=== PATIENT | male | born 1950 | race African-American/Black ===

== ENCOUNTER 2018-10-12 14:57 | Inpatient (IN) | payer MEDICAID, MEDICARE, OTHER ==
[~2018-10-12] VITALS: Ht 175.3 cm; Wt 98.2 kg
[2018-10-12] MEDS ORDERED: NKM (15:06)
--- NOTE | 2018-10-12 15:10 | NUR ---
ED Nurse Note: Pt walke din due to right hip/groin pain x 2 days. Denies injury or trauma to that part. No difficulty urinating. BP also 206/111 upon triage and is non compliant with his meds. Pt is AAO x,4 ambulates with steady gait. No respiratory distress.
--- NOTE | 2018-10-12 15:14 | Emergency Room Report ---
History of Present Illness General Chief Complaint: General Complaint Source: Patient Present Illness HPI Patient is a 68-year-old male presented after increased right inguinal pain. Patient reports of increased pain to his right groin area which began several days ago. Patient had been taking Tylenol without any improvement. He had prior history of hypertension but does not take any medications currently. Patient reports havi having worsening pain with ambulation. He denies any vomiting. Allergies: Coded Allergies: No Known Allergies (Unverified , 10/12/18) Patient History Reviewed Nursing Documentation: PMH: Agreed; PSxH: Agreed Nursing Documentation-PMH Past Medical History: No History, Except For Hx Hypertension: Yes - HTN, CVA 2009 Hx Diabetes: Yes Review of Systems All Other Systems: negative except mentioned in HPI Physical Exam Vital Signs Date Time Temp Pulse Resp B/P (MAP) Pulse Ox O2 Delivery O2 Flow Rate FiO2 10/12/18 15:00 97.9 82 18 206/111 94 Room Air Sp02 EP Interpretation: reviewed, normal General Appearance: normal inspection, well appearing, no apparent distress, alert, GCS 15, obese Head: atraumatic ENT: normal ENT inspection, hearing grossly normal, normal voice Neck: normal inspection, full range of motion, supple, no bony tend Respiratory: normal inspection, lungs clear, normal breath sounds, no respiratory distress, no retraction, no wheezing Cardiovascular #1: regular rate, rhythm, no edema Gastrointestinal: normal inspection, normal bowel sounds, soft, no guarding, no hernia, tenderness - right lower abdomen Genitourinary: no CVA tenderness Musculoskeletal: normal inspection, back normal, normal range of motion Neurologic: normal inspection, alert, oriented x3, responsive, sampling theory teacher III-XII nml as tested, speech normal Psychiatric: normal inspection, judgement/insight normal, mood/affect normal Skin: normal inspection, normal color, no rash Medical Decision Making Diagnostic Impression: Primary Impression: Uncontrolled hypertension Additional Impressions: Renal mass Horseshoe kidney ER Course Patient presented for abdominal pain. Differential diagnoses included ischemic bowel, appendicitis, perforated viscus, abdominal aortic aneurysm, inferior myocardial infarction, viral gastroenteritis among others. Because of complexity of patient's case laboratory testing and imaging studies were ordered.laboratory testing was unremarkable CT of the abdomen pelvis read by radiology showed horseshoe kidney with cystic multilobar structure posterior to the horseshoe kidney isthmus exerting mild mass-effect on the IVC measuring 3 x 3 x 2. There is no evidence of appendicitis.Patient was given hydralazine as well as metoprolol with some improvement in his blood pressure. Patient was discussed with at [facility] who agreed to accept the patient transfer. Patient was authorized for observation at [facility]. Dr. Ruy Campos was contacted for inpatient observation. Labs Test 10/12/18 15:30 White Blood Count 6.4 K/UL (4.8-10.8) Red Blood Count 4.58 M/UL (4.70-6.10) Hemoglobin 15.1 G/DL (14.2-18.0) Hematocrit 41.7 % (42.0-52.0) Mean Corpuscular Volume 91 FL (80-99) Mean Corpuscular Hemoglobin 33.0 PG (27.0-31.0) Mean Corpuscular Hemoglobin Concent 36.2 G/DL (32.0-36.0) Red Cell Distribution Width 10.2 % (11.6-14.8) Platelet Count 190 K/UL (150-450) Mean Platelet Volume 7.6 FL (6.5-10.1) Neutrophils (%) (Auto) 64.7 % (45.0-75.0) Lymphocytes (%) (Auto) 26.1 % (20.0-45.0) Monocytes (%) (Auto) 7.0 % (1.0-10.0) Eosinophils (%) (Auto) 1.0 % (0.0-3.0) Basophils (%) (Auto) 1.3 % (0.0-2.0) Urine Color Yellow Urine Appearance Clear Urine pH 6 (4.5-8.0) Urine Specific [place] 1.015 (1.005-1.035) Urine Protein 2+ (NEGATIVE) Urine Glucose (UA) 1+ (NEGATIVE) Urine Ketones Negative (NEGATIVE) Urine Blood Negative (NEGATIVE) Urine Nitrite Negative (NEGATIVE) Urine Bilirubin Negative (NEGATIVE) Urine Urobilinogen 1 MG/DL (0.0-1.0) Urine Leukocyte Esterase Negative (NEGATIVE) Urine RBC 0-2 /HPF (0 - 0) Urine WBC 0-2 /HPF (0 - 0) Urine Squamous Epithelial Cells None /LPF (NONE/OCC) Urine Bacteria Occasional /HPF (NONE) Sodium Level 140 MMOL/L (136-145) Potassium Level 3.6 MMOL/L (3.5-5.1) Chloride Level 102 MMOL/L (98-107) Carbon Dioxide Level 29 MMOL/L (21-32) Anion Gap 9 mmol/L (5-15) Blood Urea Nitrogen 15 mg/dL (7-18) Creatinine 1.3 MG/DL (0.55-1.30) Estimat Glomerular Filtration Rate > 60 mL/min (>60) Glucose Level 118 MG/DL (74-106) Calcium Level 9.9 MG/DL (8.5-10.1) Total Bilirubin 0.7 MG/DL (0.2-1.0) Aspartate Amino Transf (AST/SGOT) 21 U/L (15-37) Alanine Aminotransferase (ALT/SGPT) 38 U/L (12-78) Alkaline Phosphatase 70 U/L (46-116) Troponin I 0.012 ng/mL (0.000-0.056) Total Protein 8.2 G/DL (6.4-8.2) Albumin 4.1 G/DL (3.4-5.0) Globulin 4.1 g/dL Albumin/Globulin Ratio 1.0 (1.0-2.7) Lipase 85 U/L (73-393) Last Vital Signs Date Time Temp Pulse Resp B/P (MAP) Pulse Ox O2 Delivery O2 Flow Rate FiO2 10/12/18 15:00 97.9 82 18 206/111 94 Room Air Status: improved Disposition: PLACE IN OBSERVATION Condition: Stable Bryno Hobbs MD Oct 12, 2018 15:13
--- NOTE | 2018-10-12 15:23 | NUR ---
ED Nurse Note: Dr Hobbs is at the bed side.
[2018-10-12] MEDS ORDERED: Isovue-300 100ml vial INJ PRN (15:30)
[2018-10-12] MEDS ORDERED: Morphine Sulfate 4mg/ml Inj (IV USE ONLY) IVP ONE (15:30)
[2018-10-12] MEDS: Metoprolol 5mg/5ml Inj IVP SCH ×3 (15:43→16:07)
[2018-10-12 16:09] VITALS: BP 188/97
[2018-10-12 16:13] LABS: BASOPHILS % (AUTO) 1.3 % (0.0-2.0); HEMATOCRIT 41.7 % (42.0-52.0); HEMOGLOBIN 15.1 G/DL (14.2-18.0); LYMPHOCYTES % (AUTO) 26.1 % (20.0-45.0); MEAN CORPUSCULAR VOLUME 91 FL (80-99); NEUTROPHILS % (AUTO) 64.7 % (45.0-75.0); PLATELET COUNT 190 K/UL (150-450); RED BLOOD COUNT 4.58 M/UL (4.70-6.10); RED CELL DISTRIBUTION WIDTH 10.2 % (11.6-14.8); WHITE BLOOD COUNT 6.4 K/UL (4.8-10.8)
[2018-10-12 16:17] LABS: APPEARANCE,URINE CLEAR; BILIRUBIN, URINE NEGATIVE (NEGATIVE); GLUCOSE, URINE (UA) 1+ (NEGATIVE); KETONES,URINE NEGATIVE (NEGATIVE); LEUKOCYTE ESTERASE ,URINE NEGATIVE (NEGATIVE); NITRITE,URINE NEGATIVE (NEGATIVE); PH,URINE 6 (4.5-8.0); PROTEIN,URINE 2+ (NEGATIVE); UROBILINOGEN,URINE 1 MG/DL (0.0-1.0)
[2018-10-12 16:18] LABS: COLOR,URINE YELLOW
[2018-10-12 16:32] LABS: ANION GAP 9 mmol/L (5-15); BLOOD UREA NITROGEN 15 mg/dL (7-18); CALCIUM 9.9 MG/DL (8.5-10.1); CARBON DIOXIDE 29 MMOL/L (21-32); CHLORIDE 102 MMOL/L (98-107); CREATININE 1.3 MG/DL (0.55-1.30); POTASSIUM 3.6 MMOL/L (3.5-5.1); SODIUM 140 MMOL/L (136-145)
[2018-10-12 16:36] LABS: ALANINE AMINOTRANSFERASE 38 U/L (12-78); ALBUMIN 4.1 G/DL (3.4-5.0); ALKALINE PHOSPHATASE 70 U/L (46-116); ASPARTATE AMINO TRANSFERASE 21 U/L (15-37); BILIRUBIN,TOTAL 0.7 MG/DL (0.2-1.0)
--- NOTE | 2018-10-12 17:10 | NUR ---
ED Nurse Note: Pt taken to CT via daphney.
--- NOTE | 2018-10-12 17:25 | NUR ---
ED Nurse Note: Pt back from CT via dapnhey.
[2018-10-12 18:10] VITALS: BP 185/94
--- NOTE | 2018-10-12 18:34 | Diagnostic Imaging Report ---
EXAM: CT Abdomen and Pelvis With Intravenous Contrast CLINICAL HISTORY: ABD PAIN TECHNIQUE: Axial computed tomography images of the abdomen and pelvis with intravenous contrast. CTDI is 19.40 mGy and DLP is 1161 mGy-cm. One or more of the following dose reduction techniques were used: automated exposure control, adjustment of the mA and/or kV according to patient size, use of iterative reconstruction technique. Coronal and sagittal reformatted images were created and reviewed. COMPARISON: No relevant prior studies available. FINDINGS: Lung bases: Unremarkable. No mass. No consolidation. ABDOMEN: Liver: Unremarkable. No mass. Gallbladder and bile ducts: Unremarkable. No calcified stones. No ductal dilation. Pancreas: Unremarkable. No mass. No ductal dilation. Spleen: Unremarkable. No splenomegaly. Adrenals: Unremarkable. No mass. Kidneys and ureters: Horseshoe kidney with likely benign bilateral renal cysts and too small to characterize hypodensities likely representing benign cysts, measuring up to 4.3 cm on the right and 2.8 cm on the left. Cystic multilobular structure posterior to the horseshoe kidney isthmus and exerting mild mass effect upon the adjacent IVC measures 3.5 x 3.2 x 1.9 cm and is thought likely to be incidental and benign but is of uncertain exact etiology. This could represent a renal cyst. This could also represent a metastatic of the nonlymphatic, or other vascular malformation. Cystic metastatic disease is thought unlikely. Recommend MRI kidneys without and with intravenous contrast to further characterize. Stomach and bowel: Unremarkable. No obstruction. No mucosal thickening. PELVIS: Appendix: No findings to suggest acute appendicitis. Bladder: Unremarkable. No mass. Reproductive: Unremarkable as visualized. ABDOMEN and PELVIS: Intraperitoneal space: Unremarkable. No free air. No significant fluid collection. Bones/joints: No acute fracture. No dislocation. Soft tissues: Fat-containing periumbilical hernia with 1.7 cm mouth. Vasculature: Unremarkable. No abdominal aortic aneurysm. Lymph nodes: Unremarkable. No enlarged lymph nodes. Other findings: Minimal ASVD. IMPRESSION: 1. No acute abnormality. 2. Horseshoe kidney with likely benign renal cysts. 3. Cystic multilobular structure posterior to the horseshoe kidney isthmus and exerting mild mass effect upon the adjacent IVC measures 3.5 x 3.2 x 1.9 cm and is thought likely to be incidental and benign but is of uncertain exact etiology. This could represent a renal cyst. This could also represent a metastatic of the nonlymphatic, or other vascular malformation. Cystic metastatic disease is thought unlikely. Recommend MRI kidneys without and with intravenous contrast to further characterize.
[2018-10-12 18:39] VITALS: BP 211/92
--- NOTE | 2018-10-12 18:40 | NUR ---
ED Nurse Note: 211/[address] Hobbs notified.
--- NOTE | 2018-10-12 18:45 | NUR ---
ED Nurse Note: Dr Hobbs at the bed side recommending pt to stay for hospitalization. Pt verbalized understanding and aware of admission.
--- NOTE | 2018-10-12 19:09 | NUR ---
HAND-OFF: Report given to Padmini ORTA.
[2018-10-12] MEDS ORDERED: TYLENOL EXTRA500 MG ORAL (19:12)
[2018-10-12 19:41] VITALS: BP 196/111
--- NOTE | 2018-10-12 19:42 | NUR ---
ER Nurse Note: Pt a&ox4, VSS, no signs of distress. Denies pain. Pt ambulatory, steady gait. Pt recieved 0.5mg of hydralazine per ERMD verbal orders. Pt current BP 179/89. Pt cleared to eat; provided pt with tuna sandwich. Pt lights off, calm and comfortable. Bed in lowest position, will continue to montior.
--- NOTE | 2018-10-12 22:30 | NUR ---
TRANSFER TO FLOOR: Patient transferred to SDU-Tele overflow as ordered, per Andres. Report given to YOU Saldaña
[2018-10-12 22:33] VITALS: BP 165/75
--- NOTE | 2018-10-12 22:50 | NUR ---
NURSE NOTES: Patient arrived to SDU from ER via gurney accompanied by an RN and technical writing lead/mgr. Report received from YOU Monaco at bedside. Patient is alert, verbally responsive, able to make needs known. Denies any pain at this time. Respiration is even, no SOB or S/Sx of acute respiratory distress noted. Sp02 is 99% in room air. Routine admission care provided. oriented patient to call light, and items in room. IV site is to right AC 20 and is intact. Bed is in lowest position. Call light is within easy reach while in bed. Will continue to monitor.
--- NOTE | 2018-10-12 23:06 | NUR ---
NURSE NOTES: Paged Dr Frias for admitting order. Currently awaiting for call back at this time.
[2018-10-12 23:08] VITALS: BP 137/93
[2018-10-13] VITALS (7 sets, daily range): BP systolic 140–165; BP diastolic 71–96
--- NOTE | 2018-10-13 06:15 | NUR ---
NURSE NOTES: Report received from Piper ORTA. Pt transferred from [facility] via mayra bed. Pt in stable condition upon transfer. residential monitor remained in place. Belongings list checked with transferring RN and pt at bedside. Pt has phone and castillo at bedside, declining placing in safe and requesting to keep at bedside. Pt is awake, alert, and oriented x4. Pt is on room air and breathing is even and unlabored. No acute distress noted. IV site is R AC #20g and is asymptomatic, patent, and intact. Bed placed in lowest position with brake engaged and side rails up x2. Call light and side table placed within reach. Pt is c/o scrotal pain and is requesting tylenol - will administer PRN per orders. Will continue to monitor.
--- NOTE | 2018-10-13 06:15 | NUR ---
HAND-OFF: Report given to YOU Vera. Patient was transferred to room 218-2 via bed by 2 RN. Pt is currently stable.
--- NOTE | 2018-10-13 07:42 | NUR ---
NURSE NOTES: Received report from YOU Ross. Patient in bed resting, no active s/s cardiac, respiratory distress noticed at this time. Patient on room air, SR with HR 80. IV site on right AC 20G, asymptomatic, patent, intact. Patient c/o groin pain, endorsed one dose of Tylenol given for mild pain. Bed in lowest position, side rails upx3, call light within reach. Will continue to monitor.
--- NOTE | 2018-10-13 07:43 | NUR ---
HAND-OFF: Report given to Inocente Choi RN. Pt is sitting up at bedside in stable condition. No acute distress noted. Endorsed plan of care.
--- NOTE | 2018-10-13 11:27 | NUR ---
NURSE NOTES: Dr. Campos made aware patient c/o inguinal pain. Per Dr. Campos transfer patient to med-surgi unit, lisinopril 10 mg BID PO, ibuprofen 800 mg PO q4h prn for pain. Order noted, entered, carried out. Will continue to monitor.
--- NOTE | 2018-10-13 13:46 | NUR ---
NURSE NOTES: One dose of clonidine given at 1118 for BP 188/103, BP rechecked now 143/89 HR 78.
--- NOTE | 2018-10-13 14:00 | NUR ---
NURSE NOTES: CN made aware Dr. Campos ordered transfer patient to [facility], Awaiting for room.
[2018-10-13] MEDS ORDERED: Lisinopril 10mg tab ORAL SCH (18:00)
--- NOTE | 2018-10-13 19:20 | NUR ---
NURSE NOTES: Pt report received from Silvia ORTA. Pt is alert and oriented times 4. Pt is on room air, no distress noted. Pt appears to be resting comfortably, no distress noted. Pt has a R AC 20G, Iv is able to flush, no abnormalities noted. Will continue plan of care.
--- NOTE | 2018-10-13 19:23 | NUR ---
HAND-OFF: Report given to YOU Lopez.
--- NOTE | 2018-10-13 21:43 | NUR ---
NURSE NOTES: Received report from YOU Lopez. Addendum: 10/13/18 at 2144 by CARINE DOUGLAS RN via phone
--- NOTE | 2018-10-13 21:54 | NUR ---
HAND-OFF: Report given to Abbie ORTA from Med Surg.
[2018-10-13] MEDS ORDERED: Metoprolol 5mg/5ml Inj IVP SCH (22:00)
--- NOTE | 2018-10-13 22:15 | Progress Note ---
DATE: 10/11/2018 SUBJECTIVE: This is a 68-year-old male who came to the emergency room for uncontrolled high blood pressure and weakness. The patient was also complaining of pain on the right groin area for few days and has been progressively worsening. He has no fever and no chills. PAST MEDICAL HISTORY: None. ALLERGIES: None. FAMILY HISTORY: Noncontributory. SOCIAL HISTORY: He lives by himself. He denies any accidentally. PHYSICAL EXAMINATION: GENERAL: This is an elderly male. VITAL SIGNS: His blood pressure was high and still high, currently blood pressure 165/90, pulse 74, and respirations 18. No fever. SKIN: Good skin turgor. HEENT: NAD. CHEST: Bilaterally clear. CARDIOVASCULAR: Regular rhythm. No gallop. No murmur. ABDOMEN: Soft. Positive bowel sounds. EXTREMITIES: Right hip pain. GENITOURINARY: Refused. RECTAL: Deferred. LABORATORY EXAMINATION: Unremarkable. ASSESSMENT: 1. Uncontrolled hypertension. 2. Right groin pain, no hernia. PLAN: We will admit on tele bed. Continue Norvasc. Add lisinopril 10 mg twice a day. Continue clonidine p.r.n. q.4 h. p.r.n. pain. Consider Urology consult. Ruy Campos M.D. DR: SAMANTHA JOB#: [id number] CC: VERNON
--- NOTE | 2018-10-13 22:15 | NUR ---
NURSE NOTES: Patient arrived 3 east. AAOx4. No signs of acute distress. IV site patent. Motrin given for pain 6/10 right lower abdomen/groin region. Oriented to room. Side rails up x2. Bed low, call light within reach.
[2018-10-14] VITALS: BP 170/95
[2018-10-14 04:00] VITALS: BP 161/94
--- NOTE | 2018-10-14 07:34 | NUR ---
HAND-OFF: Report given to YOU Pascual. Patient stable.
--- NOTE | 2018-10-14 07:45 | NUR ---
NURSE NOTES: Received report from YOU Leiva. Rounding done with outgoing nurse. Patient asleep. Bed in lowest position, call light within reach. Will continue to monitor.
--- NOTE | 2018-10-14 07:53 | Urology Progress Note ---
Assessment/Plan Assessment/Plan: RLQ pain, etiology? urinary frequency renal cyst proteinuria testicular atrophy horseshoe kidney, mass posterior to isthmus monitor clinically consider abd/pelvic MRI consider gen surg eval add flomax Subjective Allergies: Coded Allergies: No Known Allergies (Unverified , 10/12/18) Subjective no new changes Objective Last 24 Hour Vital Signs Date Time Temp Pulse Resp B/P (MAP) Pulse Ox O2 Delivery O2 Flow Rate FiO2 10/14/18 04:00 98.2 60 20 161/94 (116) 96 10/14/18 00:41 170/95 10/14/18 00:00 98.3 70 20 170/95 (120) 99 10/13/18 21:00 Room Air 10/13/18 20:00 98.4 71 20 163/90 (114) 99 10/13/18 17:28 148/84 10/13/18 16:00 97.9 64 20 148/84 (105) 99 10/13/18 16:00 61 10/13/18 13:41 78 20 143/89 (107) 96 10/13/18 12:00 76 10/13/18 12:00 98.4 74 23 160/90 (113) 96 10/13/18 11:18 188/103 10/13/18 09:00 Room Air 10/13/18 08:30 77 165/96 10/13/18 08:00 98.1 77 20 165/96 (119) 97 10/13/18 08:00 66 Intake and Output 10/13/18 10/14/18 18:59 06:59 Intake Total 220 ml Balance 220 ml Intake Oral 220 ml # Voids 3 Current Medications Medications (Trade) Dose Ordered Sig/Keith Route PRN Reason Start Time Stop Time Status Last Admin Dose Admin Acetaminophen (Tylenol) 650 mg Q6H PRN ORAL Mild Pain/Temp > 100.5 10/13/18 22:00 11/12/18 21:59 Amlodipine Besylate (Norvasc) 10 mg DAILY ORAL 10/14/18 09:00 11/12/18 08:59 Clonidine HCl (Catapres Tab) 0.1 mg Q6H PRN ORAL SBP>160 OR DBP>90mmHg 10/13/18 22:00 11/12/18 21:59 10/14/18 00:41 Ibuprofen (Motrin) 800 mg Q4H PRN ORAL for pain 10/13/18 22:00 11/12/18 21:59 10/14/18 04:26 Lisinopril (Zestril) 10 mg BID ORAL 10/14/18 09:00 11/12/18 17:59 Height (Feet): 5 Height (Inches): 9.00 Weight (Pounds): 200 Objective exam stable Celso Subramanian MD Oct 14, 2018 07:53
[2018-10-14 08:00] VITALS: BP 173/98
[2018-10-14] MEDS: Lisinopril 10mg tab ORAL SCH ×2 (09:25→17:56)
--- NOTE | 2018-10-14 10:30 | Consultation ---
DATE OF CONSULTATION: 10/13/2018 CONSULTING PHYSICIAN: Celso Subramanian M.D. REFERRING PHYSICIAN: Ruy Campos M.D. REASON FOR CONSULTATION: For evaluation of groin pain. HISTORY OF PRESENT ILLNESS: This is a 68-year-old gentleman, who was admitted to the hospital because of uncontrolled high blood pressure and weakness. He is complaining of vague right groin pain and lower abdominal pain. This has been intermittent for number of weeks. He is able to urinate okay. He has some frequency. PAST MEDICAL HISTORY: As above. Otherwise negative. PAST SURGICAL HISTORY: Unknown. MEDICATIONS: Current medications here in the hospital, the patient is on Norvasc, Zestril, Tylenol, Catapres, and Motrin. ALLERGIES: No known drug allergies. SOCIAL HISTORY: The patient is currently a nonsmoker. REVIEW OF SYSTEMS: As above. FAMILY HISTORY: Noncontributory. PHYSICAL EXAMINATION: GENERAL: Elderly male, in no acute distress. VITAL SIGNS: Temperature is afebrile. Blood pressure is 160/90. NECK: Supple. ABDOMEN: Soft. I do not feel any masses. He has mild tenderness to deep palpation in the right lower quadrant. GENITOURINARY: Testes are descended and are slightly small. LABORATORY DATA: Laboratory studies showed BUN of 15, creatinine 1.3. White count of 6.4. UA showed 2+ protein, otherwise essentially negative. DIAGNOSTIC IMAGING STUDIES: The patient had a CT scan of the abdomen and pelvis showed evidence of horseshoe kidney with a benign renal cyst. There was also mention of a multilobular structure posterior to the horseshoe kidney isthmus exerting a mass effect on the IVC. The exact nature of this is unknown. IMPRESSION: 1. Vague lower abdominal and groin pain on the right side. 2. Urinary frequency. 3. Renal cyst. 4. Proteinuria. 5. Mild testicular atrophy. PLAN AND DISCUSSION: The patient does have severe groin and right lower quadrant pain. The exact etiology is unknown. There was not any abnormalities in the right lower quadrant noted on CT scan. He did have this structure near the horseshoe kidney and he may benefit from MRI for further evaluation. This can potentially be done as an outpatient. I will also consider adding Flomax. I would also recommend neurosurgical evaluation. Thank you for this consultation. Celso Subramanian M.D. DR: SHOSHANA JOB#: [id number] CC:
[2018-10-14 12:00] VITALS: BP 161/89
--- NOTE | 2018-10-14 13:44 | NUR ---
*-* INSURANCE *-* ALL AVAILABLE CLINICALS AND REVIEWS HAVE BEEN FAXED TO: [facility] NCM: BARNEY P- [phone] F- [phone]....REVIEW/CLINICAL
--- NOTE | 2018-10-14 15:18 | NUR ---
CASE MANAGEMENT:REVIEW 57 YR OLD MALE FROM HOME TO ER SI: UNCONTROLLED HTN. RENAL MASS 97.9 82 18 206/111 94% ON RA GLUCOSE+118 IS: IV HYDRALAZINE X2 IV METOPROLOL IV MORPHINE CT ABD/PELVIS : TO TELEMETRY
[2018-10-14 16:00] VITALS: BP 157/84
--- NOTE | 2018-10-14 19:25 | NUR ---
NURSE NOTES: Dr. Campos ordered Lisinopril 20mg BID. Noted and carried out.
--- NOTE | 2018-10-14 19:33 | NUR ---
HAND-OFF: Report given to YOU Leiva.
[2018-10-14 20:00] VITALS: BP 179/103
[2018-10-14] MEDS: Tamsulosin 0.4mg cap ORAL SCH (20:14)
--- NOTE | 2018-10-14 20:23 | NUR ---
NURSE NOTES: Received report from YOU Pascual. Patient is aaox4. no pain noted. BP 179/103. Clonidine given. Neuro checks wnl, talkative. Side rails upx2. Safety precautions in place. Bed low, call light within reach.
--- NOTE | 2018-10-14 22:36 | Physician Query ---
Clarification is required for compliance, coding accuracy, and to reflect severity of illness for this patient Dear Dr. Campos Date: 10/14/[address] and [address] X in appropriate box Patient is admitted with uncontrolled hypertension. BP: 206/111 Rx: IV Hydralazine Can you please clarify further severity of Hypertension? [ ] Hypertensive urgency [ ] Hypertensive emergency [ ] Essential Hypertension [ ] Other: [ ] Clinically undetermined Present on Admission: [ ] Yes [ ] No [ ] Clinically Undetermined Physician signature Date Please also document in your Progress Notes and/or Discharge Summary and indicate if the condition was present on admission.
[2018-10-15] VITALS (7 sets, daily range): BP systolic 152–185; BP diastolic 89–105
--- NOTE | 2018-10-15 01:00 | Progress Note ---
DATE: 10/14/2018 SUBJECTIVE: This is an elderly male. Currently, in bed. OBJECTIVE: VITAL SIGNS: Blood pressure is better, 157/84 and pulse 60. No fever. CHEST: Bilaterally clear. CARDIOVASCULAR: Regular rhythm. ABDOMEN: Soft. EXTREMITIES: CCE. ASSESSMENT: 1. Hypertension. 2. Urinary tract infection. 3. Dehydration. PLAN: Continue current treatment. Continue antibiotic. Continue bronchodilator treatment, Tylenol, and Flomax. Ruy Campos M.D. DR: SAMANTHA JOB#: [id number] CC:
--- NOTE | 2018-10-15 07:46 | Urology Progress Note ---
Assessment/Plan Assessment/Plan: RLQ pain, etiology? urinary frequency renal cyst proteinuria testicular atrophy horseshoe kidney, mass posterior to isthmus monitor clinically order abd/pelvic MRI consider gen surg eval flomax added Subjective Allergies: Coded Allergies: No Known Allergies (Unverified , 10/12/18) Subjective no new changes Objective Last 24 Hour Vital Signs Date Time Temp Pulse Resp B/P (MAP) Pulse Ox O2 Delivery O2 Flow Rate FiO2 10/15/18 04:00 99.2 69 18 154/99 (117) 99 10/15/18 00:00 98.6 59 18 152/92 (112) 99 10/14/18 21:00 Room Air 10/14/18 20:15 179/103 10/14/18 20:00 98.6 83 18 179/103 (128) 96 10/14/18 17:56 157/84 10/14/18 16:00 98.4 60 18 157/84 (108) 99 10/14/18 12:00 98.7 57 20 161/89 (113) 99 10/14/18 09:26 173/98 10/14/18 09:25 173/98 10/14/18 09:25 69 173/98 10/14/18 09:00 Room Air 10/14/18 08:00 97.7 69 20 173/98 (123) 98 Intake and Output 10/14/18 10/15/18 18:59 06:59 Intake Total 800 ml 360 ml Balance 800 ml 360 ml Intake Oral 800 ml 360 ml # Voids 3 4 Current Medications Medications (Trade) Dose Ordered Sig/Keith Route PRN Reason Start Time Stop Time Status Last Admin Dose Admin Acetaminophen (Tylenol) 650 mg Q6H PRN ORAL Mild Pain/Temp > 100.5 10/13/18 22:00 11/12/18 21:59 Amlodipine Besylate (Norvasc) 10 mg DAILY ORAL 10/14/18 09:00 11/12/18 08:59 10/14/18 09:25 Clonidine HCl (Catapres Tab) 0.1 mg Q6H PRN ORAL SBP>160 OR DBP>90mmHg 10/13/18 22:00 11/12/18 21:59 10/14/18 20:15 Ibuprofen (Motrin) 800 mg Q4H PRN ORAL for pain 10/13/18 22:00 11/12/18 21:59 10/15/18 04:32 Lisinopril (Zestril) 20 mg BID ORAL 10/15/18 09:00 11/12/18 17:59 Tamsulosin HCl (Flomax) 0.4 mg BEDTIME ORAL 10/14/18 21:00 11/13/18 20:59 10/14/18 20:14 Height (Feet): 5 Height (Inches): 9.00 Weight (Pounds): 200 Objective exam stable Celso Subramanian MD Oct 15, 2018 07:46
[2018-10-15] MEDS ORDERED: Gadavist 7.5mMol/7.5ml vial IV PRN (08:00)
[2018-10-15] MEDS ORDERED: Gadavist 7.5mMol/7.5ml vial IV ONE (08:00)
--- NOTE | 2018-10-15 08:05 | NUR ---
HAND-OFF: Report given to YOU Gomez. Patient stable.
--- NOTE | 2018-10-15 08:21 | NUR ---
NURSE NOTES: During shift change patient alert awake with out no distress, bed on low position locked, call light with in reach, will continue to monitor.
[2018-10-15] MEDS: Lisinopril 10mg tab ORAL SCH ×2 (09:26→17:11)
[2018-10-15] MEDS: HydrALAZINE 25mg tab ORAL SCH ×2 (12:30→17:11)
--- NOTE | 2018-10-15 12:35 | NUR ---
NURSE NOTES: Patient SBP 182 MD notified medication order received medication administered patient left for MRI, Kevin khan.
--- NOTE | 2018-10-15 13:23 | NUR ---
*-* INSURANCE *-* ALL AVAILABLE CLINICALS AND REVIEWS HAVE BEEN FAXED TO: [facility] NCM: BARNEY P- [phone] F- [phone]....REVIEW/CLINICAL
--- NOTE | 2018-10-15 15:10 | Diagnostic Imaging Report ---
Indication: Cystic lesion posterior to the kidney. Abnormal CT. Further evaluation with MRI was suggested Technique: MRI of the abdomen and pelvis was performed in a 1.5 Candy magnet. Pulse sequences obtained include coronal and axial T2 single shot fast spin echo breathhold, Axial T1 FSPGR in/out phase, Axial T2 FSE w/ fat saturation, Axial 2-D FIESTA, Ax/Cor T1 LAVA. Dynamic gadolinium-enhanced axial T1 lava. Comparison: CT abdomen/pelvis with contrast 10/12/2018 Findings: There is a horseshoe kidney. There are innumerable cysts present within both kidney moieties of varying size. Again there is an exophytic cyst posterior to the kidney right of midline compressing the anterior wall the IVC measuring about 2 x 3.5 x 4 cm. There is no abnormal enhancement of this lesion or any of the other cysts within the kidneys. Gallbladder is unremarkable. There is no biliary ductal dilatation identified. Pancreas is unremarkable. Liver and spleen are unremarkable. No free fluid identified. The IVC is moderately compressed due to the cyst mentioned. Aorta is unremarkable. Adrenal glands show no abnormalities. Proceeding to the pelvis the urinary bladder is noted and unremarkable. There is no adenopathy or free fluid identified. Osseous structures are unremarkable. No abnormal enhancement identified. IMPRESSION: Multiple cysts within a horseshoe kidney. No mass or suspicious features.
--- NOTE | 2018-10-15 15:22 | NUR ---
*-* CASE MANAGEMENT NOTED *-* SPOKE TO LEIGH( COORDINATOR ) P: [phone] GAVE US AUTH # [id number] ELEANOR: BARNEY P: [phone]
--- NOTE | 2018-10-15 15:27 | NUR ---
CASE MANAGEMENT:REVIEW 10/15/18 SI: HYPERTENSION. UTI. DEHYDRATION RENAL MASS 98.1 62 18 182/95 95% ON RA IS: HYDRALAZINE PO TID LISINOPRIL PO BID FLOMAX PO QHS NORVASC PO QD CLONIDINE PO Q6HRS PRN (GIVEN X3 SO FAR TODAY) : MED/SURG STATUS 3 EAST DCP; FROM HOME PLAN: MRI ABDOMEN AND PELVIS
--- NOTE | 2018-10-15 18:38 | NUR ---
NURSE NOTES: Patient SBP 166 1800 medication given SBP lowered to 153. patient Asymptomatic with elevated BP.
--- NOTE | 2018-10-15 19:50 | NUR ---
NURSE NOTES: Report taken from YOU Gomez. Patient is awake and seated at the bedside, A&Ox4. No signs of distress on room air. IV site c/d/i and patent. Some skin dryness on bilateral ankles, no open wounds noted, continue to monitor. Bed in lowest position, call light within reach.
--- NOTE | 2018-10-15 19:54 | NUR ---
HAND-OFF: Report given to YOU Borges patient stable condition Prune juice given for constipation.
[2018-10-15] MEDS: Tamsulosin 0.4mg cap ORAL SCH (20:50)
[2018-10-16] VITALS (7 sets, daily range): BP systolic 138–176; BP diastolic 84–93
--- NOTE | 2018-10-16 06:45 | Progress Note ---
DATE: 10/15/2018 SUBJECTIVE: This is an elderly male who came to the ER with uncontrolled high blood pressure as well as groin pain. The patient denies currently comfortable. OBJECTIVE: VITAL SIGNS: Blood pressure is still high at 180. ASSESSMENT AND PLAN: hydralazine 25 b.i.d. Continue current treatment. Cardiology consult was also obtained. Neurologic consult was also obtained. Ruy Campos M.D. DR: SAMANTHA JOB#: [id number] CC:
--- NOTE | 2018-10-16 07:05 | NUR ---
HAND-OFF: Report given to YOU Gomez. Patient is awake and VS stable. Endorsed to day shift that patient would like stronger pain meds for groin pain.
--- NOTE | 2018-10-16 07:58 | NUR ---
NURSE NOTES: During shift change patient awake alert with out no distress, seating on bed and eating breakfast bed at low position locked, call light with in reach, will continue to monitor.
[2018-10-16] MEDS: Lisinopril 10mg tab ORAL SCH ×2 (08:23→18:16)
[2018-10-16] MEDS: HydrALAZINE 25mg tab ORAL SCH ×3 (08:24→18:00)
--- NOTE | 2018-10-16 08:38 | Urology Progress Note ---
Assessment/Plan Assessment/Plan: RLQ pain, etiology? urinary frequency renal cyst proteinuria testicular atrophy horseshoe kidney, mass posterior to isthmus monitor clinically consider gen surg eval flomax added Subjective Allergies: Coded Allergies: No Known Allergies (Unverified , 10/12/18) Subjective no new changes Objective Last 24 Hour Vital Signs Date Time Temp Pulse Resp B/P (MAP) Pulse Ox O2 Delivery O2 Flow Rate FiO2 10/16/18 08:24 155/91 10/16/18 08:23 155/91 10/16/18 08:23 65 155/91 10/16/18 05:27 175/93 10/16/18 04:00 98.0 61 18 175/93 (120) 99 10/16/18 00:11 97.7 63 16 146/93 (110) 99 10/15/18 21:00 Room Air 10/15/18 20:55 185/105 10/15/18 20:00 98.1 83 19 185/105 (131) 98 10/15/18 18:37 153/89 (110) 10/15/18 17:11 166/98 10/15/18 17:11 166/98 10/15/18 17:11 98.1 10/15/18 16:39 98.1 67 18 166/98 (120) 96 10/15/18 12:30 165/99 10/15/18 12:00 98.1 62 18 182/95 (124) 95 10/15/18 09:27 69 165/99 10/15/18 09:26 165/99 10/15/18 09:00 Room Air Intake and Output 10/15/18 10/16/18 19:00 07:00 Intake Total 480 ml 360 ml Balance 480 ml 360 ml Intake Oral 480 ml 360 ml # Voids 4 3 Current Medications Medications (Trade) Dose Ordered Sig/Keith Route PRN Reason Start Time Stop Time Status Last Admin Dose Admin Acetaminophen (Tylenol) 650 mg Q6H PRN ORAL Mild Pain/Temp > 100.5 10/13/18 22:00 11/12/18 21:59 Amlodipine Besylate (Norvasc) 10 mg DAILY ORAL 10/14/18 09:00 11/12/18 08:59 10/16/18 08:23 Clonidine HCl (Catapres Tab) 0.1 mg Q6H PRN ORAL SBP>160 OR DBP>90mmHg 10/13/18 22:00 11/12/18 21:59 10/16/18 05:27 Gadobutrol (Gadavist) 7.5 mmol NOW PRN IV Radiology Procedure 10/15/18 08:00 10/19/18 07:46 Hydralazine HCl (Apresoline) 25 mg TID ORAL 10/15/18 13:00 11/14/18 12:59 10/16/18 08:24 Ibuprofen (Motrin) 800 mg Q4H PRN ORAL for pain 10/13/18 22:00 11/12/18 21:59 10/16/18 05:21 Lisinopril (Zestril) 20 mg BID ORAL 10/15/18 09:00 11/12/18 17:59 10/16/18 08:23 Tamsulosin HCl (Flomax) 0.4 mg BEDTIME ORAL 10/14/18 21:00 11/13/18 20:59 10/15/18 20:50 Height (Feet): 5 Height (Inches): 9.00 Weight (Pounds): 216 Objective exam stable MRI A/P (10/15) noted Celso Subramanian MD October 16, 2018 08:38
[2018-10-16] MEDS: Milk of Magnesia 30ml Ud ORAL SCH ×2 (12:32→18:16)
--- NOTE | 2018-10-16 14:58 | NUR ---
*-* INSURANCE *-* UPDATED CLINICALS AND REVIEWS HAVE BEEN FAXED TO: [facility] NCM: BARNEY P- [phone] F- [phone]....REVIEW/CLINICAL
--- NOTE | 2018-10-16 15:39 | NUR ---
DISCHARGE PLANNING Discharge order noted Patient has been referred to [facility], [facility] Await Acceptance and Room Number Addendum: 10/17/18 at 0756 by CEDRIC YANESN [employer]ER WAS UNABLE TO REFER PATIENT TO [facility] SINCE THEY WERE NOT CONTRACTED WITH [facility] [employer] PROVIDED THE NAMES AND PHONE NUMBERS OF 3 CONTRACTED HOME HEALTH RECEIVED MESSAGE FROM JOHN WITH [facility] [employer] [facility] STATING THEY WILL ACCEPT PATIENT AND ARE JUST WAITING ON AUTHORIZATION MESSAGE LEFT FOR [facility] [employer] REQUESTING SHE PROVIDE AUTHORIZATION TO HOME HEALTH
--- NOTE | 2018-10-16 17:17 | NUR ---
NURSE NOTES: Dr. Campos notified regarding elevated BP and order received for consult and Dr. Castaneda called and left a massage.
--- NOTE | 2018-10-16 19:30 | Discharge Summary ---
DATE OF ADMISSION: 10/12/2018 DATE OF DISCHARGE: 10/16/2018 SUBJECTIVE: This is a 68-year-old male came to the emergency room for uncontrolled high blood pressure. The patient also having some abdominal pain, urinary incontinency. The patient's blood pressure was worked up. The patient was given Norvasc 10 mg, clonidine p.r.n. The patient's blood pressure still was high. OBJECTIVE: VITAL SIGNS: In the recent examination, apparently his blood pressure is improving. Currently 155/90, asymptomatic. CHEST: Bilaterally clear. CARDIOVASCULAR: Regular rhythm. ABDOMEN: Soft. EXTREMITIES: CCE. HOSPITAL COURSE: The patient has seen Cardiology and Urology . The patient was placed on Flomax. DISCHARGE DIAGNOSES: 1. Uncontrolled high blood pressure. 2. BPH. 3. Obesity. DIET: He is on 2 g sodium diet. ACTIVITY: As tolerated. The patient needs home health. DISCHARGE MEDICATIONS: The patient is requested to also add Flomax to discharge medication. Lisinopril 20 mg b.i.d., hydralazine 50 mg t.i.d., Norvasc 10 mg daily, clonidine 0.1 mg q.6 hours p.r.n. over 160/90 as well as Flomax 0.4 mg daily. The patient recommended to followup as outpatient with primary care. Ruy Campos M.D. DR: DARYA JOB#: [id number] CC:
--- NOTE | 2018-10-16 19:52 | NUR ---
HAND-OFF: Report given to YOU Leiva patient stable condition new order received and discussed with receiving nurse.
[2018-10-16] MEDS: Tamsulosin 0.4mg cap ORAL SCH (20:44)
[2018-10-16] MEDS: HydrALAZINE 50mg tab ORAL SCH (22:38)
--- NOTE | 2018-10-16 22:53 | NUR ---
NURSE NOTES: Patient is aaox4. No signs of acute distress, talkative, friend at bedside. BP 161/90, clonidine given. IV site patent. Needs attended to, bed low, call light within reach.
[2018-10-17] VITALS (8 sets, daily range): BP systolic 141–173; BP diastolic 78–97
--- NOTE | 2018-10-17 01:06 | Cardiology Report ---
APPROVED REPORT EKG Measurement Heart [id number] Normal sinus rhythm Voltage criteria for left ventricular hypertrophy Abnormal ECG
[2018-10-17] MEDS: HydrALAZINE 50mg tab ORAL SCH ×3 (06:07→22:16)
--- NOTE | 2018-10-17 07:30 | NUR ---
NURSE NOTES: Report received from outgoing nurse, rounds made. Patient sitting at bedside, to eat breakfast, alert, oriented x4 calm. Denies SOB on RA, NV or pain at this time. LFA heplock intact, reinforced with tape, site asymptomatic. Instructed erp consultant light use for safety, bed in lowest position, will continue to monitor.
--- NOTE | 2018-10-17 07:49 | NUR ---
HAND-OFF: Report given to YOU Varela. Patient stable.
[2018-10-17] MEDS: Lisinopril 10mg tab ORAL SCH ×2 (08:57→18:45)
[2018-10-17] MEDS: Milk of Magnesia 30ml Ud ORAL SCH ×2 (08:57→18:00)
--- NOTE | 2018-10-17 09:40 | Urology Progress Note ---
Assessment/Plan Assessment/Plan: RLQ pain, etiology? urinary frequency renal cyst proteinuria testicular atrophy horseshoe kidney, mass posterior to isthmus monitor clinically consider gen surg eval flomax added Subjective Allergies: Coded Allergies: No Known Allergies (Unverified , 10/12/18) Subjective no new changes Objective Last 24 Hour Vital Signs Date Time Temp Pulse Resp B/P (MAP) Pulse Ox O2 Delivery O2 Flow Rate FiO2 10/17/18 08:57 162/82 10/17/18 08:57 59 162/82 10/17/18 08:00 96.9 59 18 162/82 (108) 99 10/17/18 06:07 141/81 10/17/18 04:00 98.2 51 18 141/81 (101) 97 10/17/18 00:00 98.2 54 18 141/78 (99) 98 10/16/18 22:38 137/84 10/16/18 21:00 Room Air 10/16/18 21:00 138/84 (102) 10/16/18 20:45 161/90 10/16/18 20:00 98.0 64 18 161/91 (114) 96 10/16/18 19:07 98.3 10/16/18 18:25 176/86 10/16/18 18:16 176/86 10/16/18 16:00 98.0 67 18 176/86 (116) 96 10/16/18 15:10 166/92 10/16/18 12:32 166/86 10/16/18 12:00 98.4 61 18 166/86 (112) 96 Intake and Output 10/16/18 10/17/18 19:00 07:00 Intake Total 1200 ml Balance 1200 ml Intake Oral 1200 ml # Voids 4 3 Current Medications Medications (Trade) Dose Ordered Sig/Keith Route PRN Reason Start Time Stop Time Status Last Admin Dose Admin Acetaminophen (Tylenol) 650 mg Q6H PRN ORAL Mild Pain/Temp > 100.5 10/13/18 22:00 11/12/18 21:59 Amlodipine Besylate (Norvasc) 10 mg DAILY ORAL 10/14/18 09:00 11/12/18 08:59 10/17/18 08:57 Clonidine HCl (Catapres Tab) 0.1 mg Q2H PRN ORAL SBP>170 10/16/18 18:00 11/15/18 17:59 10/16/18 20:45 Gadobutrol (Gadavist) 7.5 mmol NOW PRN IV Radiology Procedure 10/15/18 08:00 10/19/18 07:46 Hydralazine HCl (Apresoline) 50 mg EVERY 8 HOURS ORAL 10/16/18 22:00 11/14/18 12:59 10/17/18 06:07 Ibuprofen (Motrin) 800 mg Q4H PRN ORAL for pain 10/13/18 22:00 11/12/18 21:59 10/17/18 03:44 Lisinopril (Zestril) 20 mg BID ORAL 10/15/18 09:00 11/12/18 17:59 10/17/18 08:57 Magnesium Hydroxide (Mom) 30 ml BID ORAL 10/16/18 12:30 11/15/18 12:29 10/17/18 08:57 Tamsulosin HCl (Flomax) 0.4 mg BEDTIME ORAL 10/14/18 21:00 11/13/18 20:59 10/16/18 20:44 Height (Feet): 5 Height (Inches): 9.00 Weight (Pounds): 216 Objective exam stable MRI A/P (10/15) noted Celso Subramanian MD October 17, 2018 09:40
--- NOTE | 2018-10-17 10:20 | NUR ---
CASE MANAGEMENT:REVIEW 10/16/18 SI: HYPERTENSION. UTI. DEHYDRATION RENAL MASS 98.3 65 17 155/91 96% ON RA IS: HYDRALAZINE PO TID LISINOPRIL PO BID FLOMAX PO QHS NORVASC PO QD CLONIDINE PO Q6HRS PRN : MED/SURG STATUS 3 EAST DCP; FROM HOME 10/17/18 SI: HYPERTENSION. UTI. DEHYDRATION RENAL MASS 96.9 59 18 162/82 99% ON RA IS: HYDRALAZINE PO TID LISINOPRIL PO BID FLOMAX PO QHS NORVASC PO QD CLONIDINE PO Q6HRS PRN : MED/SURG STATUS 3 EAST DCP; FROM HOME PLAN: HOPE TO DISCHARGE HOME TODAY YESTERDAY PRIOR TO DISCHARGE BLOOD PRESSURE WAS 176/86 DISCHARGE WAS HELD AND HYDRALAZINE DOSE INCREASED FROM 25MG TID TO 50MG Q8HRS PATIENT HAS BEEN REFERRED TO [facility] FOR NURSE VISITS, MEDICATION COMPLIANCE AND BLOOD PRESSURE CHECKS
--- NOTE | 2018-10-17 12:42 | NUR ---
*-* INSURANCE *-* UPDATED CLINICALS AND REVIEWS HAVE BEEN [facility]XED TO: [facility]: BARNEY P- [phone]....REVIEW/CLINICAL Addendum: 10/17/18 at 1243 by CHLOE JACKSON CM discharged summary only was faxed.
--- NOTE | 2018-10-17 16:29 | Cardiac Electrophysiology PN ---
Subjective Subjective [id number] Objective Last 24 Hour Vital Signs Date Time Temp Pulse Resp B/P (MAP) Pulse Ox O2 Delivery O2 Flow Rate FiO2 10/17/18 13:15 165/91 10/17/18 13:11 165/91 10/17/18 12:00 97.5 65 18 165/91 (115) 95 10/17/18 09:00 Room Air 10/17/18 08:57 162/82 10/17/18 08:57 59 162/82 10/17/18 08:00 96.9 59 18 162/82 (108) 99 10/17/18 06:07 141/81 10/17/18 04:00 98.2 51 18 141/81 (101) 97 10/17/18 00:00 98.2 54 18 141/78 (99) 98 10/16/18 22:38 137/84 10/16/18 21:00 Room Air 10/16/18 21:00 138/84 (102) 10/16/18 20:45 161/90 10/16/18 20:00 98.0 64 18 161/91 (114) 96 10/16/18 19:07 98.3 10/16/18 18:25 176/86 10/16/18 18:16 176/86 Intake and Output 10/16/18 10/17/18 18:59 06:59 Intake Total 1200 ml Balance 1200 ml Intake Oral 1200 ml # Voids 4 3 Vasyl Rolle MD October 17, 2018 16:29
--- NOTE | 2018-10-17 19:45 | NUR ---
HAND-OFF: Report given to Jaz ORTA.
--- NOTE | 2018-10-17 20:00 | NUR ---
NURSE NOTES: Received patient from YOU Varela. Pt is in bed, watching TV, AAOx4. On room air, unlabored breathing, no s/s of distress. Denies pain. Pt has a patent R AC 20G SL. Reinforced teaching on high blood pressure medication compliance, patient verbalized understanding. Bed is locked at the lowest position, bed alarms active, side rails up x2, and call light is within reach. Will continue to monitor.
[2018-10-17] MEDS: Tamsulosin 0.4mg cap ORAL SCH (20:55)
--- NOTE | 2018-10-17 20:56 | NUR ---
NURSE NOTES: BP 173/86. Clonidine 0.1MG given. Will continue to monitor.
--- NOTE | 2018-10-17 23:45 | Consultation ---
DATE OF CONSULTATION: 10/17/2018 CARDIOLOGY CONSULTATION CONSULTING PHYSICIAN: Vasyl Rolle M.D. REFERRING PHYSICIAN: Swapnil Campos M.D. REASON FOR CONSULTATION: Uncontrolled hypertension. HISTORY OF PRESENT ILLNESS: The patient is a 68-year-old gentleman, who was admitted to the hospital on 10/14/2018 for uncontrolled hypertension. The patient also has a vague right groin pain and lower abdominal pain and was evaluated by Dr. Subramanian. The patient was supposed to be discharged although blood pressure was still not controlled and a Cardiology consultation was requested today for further evaluation and optimization of his medication. REVIEW OF SYSTEMS: Negative other than what is mentioned in the history of present illness. PAST MEDICAL HISTORY: Hypertension. PAST SURGICAL HISTORY: Unknown. MEDICATIONS: Per reconciliation. PHYSICAL EXAMINATION: VITAL SIGNS: Show blood pressure of 165/91, pulse 64, respirations 18, and temperature 97.5. HEAD AND NECK: Showed no JVD or carotid bruits. LUNGS: Clear. CARDIOVASCULAR: Shows regular S1 and S2 with no gallop or murmur. ABDOMEN: Soft. EXTREMITIES: No pitting edema. LABORATORY AND DIAGNOSTIC DATA: His labs show white count of 6.4, hemoglobin of 15.5, hematocrit 41.7, and platelet count of 190,000. Sodium 140, potassium 3.6, BUN of 15, creatinine 1.3, and glucose of 118. Troponin is negative. His echocardiogram shows ejection fraction of 65%. ASSESSMENT/PLAN: 1. Uncontrolled hypertension. Increase hydralazine to 100 mg 3 times daily. The patient is also on lisinopril 20 mg b.i.d. as well as amlodipine 10 mg daily. Continue on p.r.n. clonidine as well. 2. Right lower quadrant pain, etiology is not clear. Follow up by Dr. Subramanian. The patient is currently on Flomax. Thank you very much for allowing me to participate in the care of this patient. Please do not hesitate to contact me for any questions regarding my evaluation. Vasyl Rolle M.D. DR: ALMA DELIA JOB#: [id number] CC:
[2018-10-18] VITALS (9 sets, daily range): BP systolic 156–178; BP diastolic 84–104
--- NOTE | 2018-10-18 04:15 | Progress Note ---
DATE: 10/17/2018 SUBJECTIVE: This is an elderly male, currently doing okay. OBJECTIVE: VITAL SIGNS: Blood pressure is still up and down. Current blood pressure is 160/90 and pulse 74. CHEST: Bilaterally clear. CARDIOVASCULAR: Regular rhythm. ABDOMEN: Soft. EXTREMITIES: CCE. Cardiology on case. The patient was placed on hydralazine, clonidine, lisinopril, , Flomax, and Norvasc. Ruy Campos M.D. DR: LISA JOB#: [id number] CC:
[2018-10-18] MEDS: HydrALAZINE 50mg tab ORAL SCH ×3 (05:04→21:19)
[2018-10-18 06:57] LABS: BASOPHILS % (AUTO) 0.9 % (0.0-2.0); EOSINOPHILS % (AUTO) 2.3 % (0.0-3.0); HEMATOCRIT 40.1 % (42.0-52.0); HEMOGLOBIN 13.8 G/DL (14.2-18.0); LYMPHOCYTES % (AUTO) 29.5 % (20.0-45.0); MEAN CORPUSCULAR VOLUME 95 FL (80-99); MONOCYTES % (AUTO) 8.8 % (1.0-10.0); NEUTROPHILS % (AUTO) 58.5 % (45.0-75.0); PLATELET COUNT 189 K/UL (150-450); RED BLOOD COUNT 4.21 M/UL (4.70-6.10); RED CELL DISTRIBUTION WIDTH 10.8 % (11.6-14.8); WHITE BLOOD COUNT 4.6 K/UL (4.8-10.8)
[2018-10-18 07:23] LABS: ANION GAP 10 mmol/L (5-15); BLOOD UREA NITROGEN 23 mg/dL (7-18); CALCIUM 9.2 MG/DL (8.5-10.1); CARBON DIOXIDE 26 MMOL/L (21-32); CHLORIDE 105 MMOL/L (98-107); CREATININE 1.3 MG/DL (0.55-1.30); POTASSIUM 3.6 MMOL/L (3.5-5.1); SODIUM 141 MMOL/L (136-145)
--- NOTE | 2018-10-18 07:35 | NUR ---
NURSE NOTES: Report received from outgoing nurse, rounds made. Patient sitting in semi-fowlers position in bed. Alert, oriented x4, calm. Right lower abdominal pain 5/10 at rest, will medicate as ordered. RAC ariel, intact, site asymptomatic. Tolerated low sodium breakfast well. No SOB on RA. Call light in reach, bed in lowest position, will continue to monitor.
--- NOTE | 2018-10-18 07:41 | NUR ---
HAND-OFF: Report given to YOU Christensen.
[2018-10-18] MEDS: Milk of Magnesia 30ml Ud ORAL SCH ×2 (09:00→17:50)
--- NOTE | 2018-10-18 09:17 | NUR ---
NURSE NOTES: Notified Dr. Ann of Troponin level 0.017, orders received to transfer patient to Telemetry, STAT EKG and STAT Troponin level. Called Cardiology and Lab to notify of orders.
[2018-10-18] MEDS: Lisinopril 10mg tab ORAL SCH (09:31)
--- NOTE | 2018-10-18 10:26 | NUR ---
CHARGE NURSE NOTES: REPEAT troponin reading of 0.012 & ekg reading called to Dr Rolle's voice message. Pt denies any chest pain.
--- NOTE | 2018-10-18 11:12 | Cardiology Report ---
APPROVED REPORT EXAM: Two-dimensional and M-mode echocardiogram with Doppler and color Doppler. INDICATION Hypertension/HCVD M-Mode DIMENSIONS IVSd2.1 (0.7-1.1cm)Left Atrium (MM)4.2 (1.6-4.0cm) LVDd4.3 (3.5-5.6cm)Aortic Root3.9 (2.0-3.7cm) PWd1.7 (0.7-1.1cm)Aortic Cusp Exc.2.1 (1.5-2.0cm) LVDs3.6 (2.5-4.0cm) PWs1.8 cm Normal left ventricular chamber size, systolic function and wall motion. Left ventricular ejection fraction estimated to be 65 %. Moderate left ventricular hypertrophy by 2-D. No evidence of pericardial effusion. Moderate left atrial enlargement. Right cardiac chamber sizes are within normal limits. Focal aortic valve sclerosis with adequate cusp excursion. Thickened mitral valve leaflets with normal excursion. Mitral annulus and aortic root calcification. Pulmonic valve not well visualized. Normal tricuspid valve structure. IVC at normal size with physiologic collapse. A color flow and spectral Doppler study was performed and revealed: Trace mitral regurgitation. Mitral diastolic velocities suggest reduced left ventricular relaxation c/w mild LV diastolic dysfunction (Grade I). Trace tricuspid regurgitation. Tricuspid systolic velocities suggests peak right ventricular systolic pressure of 12 mmHg.
--- NOTE | 2018-10-18 11:43 | Urology Progress Note ---
Assessment/Plan Assessment/Plan: RLQ pain, etiology? urinary frequency renal cyst proteinuria testicular atrophy horseshoe kidney, mass posterior to isthmus monitor clinically consider gen surg eval flomax added renal fxn stable Subjective Allergies: Coded Allergies: No Known Allergies (Unverified , 10/12/18) Subjective no new changes Objective Last 24 Hour Vital Signs Date Time Temp Pulse Resp B/P (MAP) Pulse Ox O2 Delivery O2 Flow Rate FiO2 10/18/18 09:31 172/90 10/18/18 09:30 63 172/90 10/18/18 09:00 Room Air 10/18/18 08:00 98.1 63 17 172/90 (117) 99 10/18/18 05:04 163/84 10/18/18 05:00 98.1 55 20 163/84 (110) 96 10/18/18 00:00 98.1 56 20 159/87 (111) 98 10/17/18 22:16 150/78 10/17/18 22:15 150/78 (102) 10/17/18 21:00 Room Air 10/17/18 20:56 173/86 10/17/18 20:00 97.9 71 173/86 (115) 10/17/18 18:45 160/97 10/17/18 18:45 71 160/97 (118) 10/17/18 16:00 Room Air 10/17/18 16:00 97.5 64 18 158/89 (112) 98 10/17/18 14:00 Room Air 10/17/18 13:15 165/91 10/17/18 13:11 165/91 10/17/18 12:00 97.5 65 18 165/91 (115) 95 Intake and Output 10/17/18 10/18/18 19:00 07:00 Intake Total 2029 ml 500 ml Balance 2029 ml 500 ml Intake Oral 2029 ml 500 ml # Voids 5 3 # Bowel Movements 6 Current Medications Medications (Trade) Dose Ordered Sig/Keith Route PRN Reason Start Time Stop Time Status Last Admin Dose Admin Acetaminophen (Tylenol) 650 mg Q6H PRN ORAL Mild Pain/Temp > 100.5 10/13/18 22:00 11/12/18 21:59 Amlodipine Besylate (Norvasc) 10 mg DAILY ORAL 10/14/18 09:00 11/12/18 08:59 10/18/18 09:30 Clonidine HCl (Catapres Tab) 0.1 mg Q2H PRN ORAL SBP>160 or DBP>90 10/17/18 23:00 11/15/18 22:59 Gadobutrol (Gadavist) 7.5 mmol NOW PRN IV Radiology Procedure 10/15/18 08:00 10/19/18 07:46 Hydralazine HCl (Apresoline) 100 mg EVERY 8 HOURS ORAL 10/17/18 22:00 11/14/18 12:59 10/18/18 05:04 Ibuprofen (Motrin) 800 mg Q4H PRN ORAL for pain 10/13/18 22:00 11/12/18 21:59 10/18/18 09:33 Lisinopril (Zestril) 20 mg BID ORAL 10/15/18 09:00 11/12/18 17:59 10/18/18 09:31 Magnesium Hydroxide (Mom) 30 ml BID ORAL 10/16/18 12:30 11/15/18 12:29 10/17/18 08:57 Tamsulosin HCl (Flomax) 0.4 mg BEDTIME ORAL 10/14/18 21:00 11/13/18 20:59 10/17/18 20:55 Laboratory Tests 10/18/18 05:52: White Blood Count 4.6L, Red Blood Count 4.21L, Hemoglobin 13.8L, Hematocrit 40.1L, Mean Corpuscular Volume 95, Mean Corpuscular Hemoglobin 32.8H, Mean Corpuscular Hemoglobin Concent 34.5, Red Cell Distribution Width 10.8L, Platelet Count 189, Mean Platelet Volume 8.2, Neutrophils (%) (Auto) 58.5, Lymphocytes (%) (Auto) 29.5, Monocytes (%) (Auto) 8.8, Eosinophils (%) (Auto) 2.3, Basophils (%) (Auto) 0.9, Sodium Level 141, Potassium Level 3.6, Chloride Level 105, Carbon Dioxide Level 26, Anion Gap 10, Blood Urea Nitrogen 23H, Creatinine 1.3, Estimat Glomerular Filtration Rate > 60, Glucose Level 125H, Calcium Level 9.2, Troponin I 0.017 10/18/18 09:32: Troponin I 0.012 Height (Feet): 5 Height (Inches): 9.00 Weight (Pounds): 216 Objective exam stable MRI A/P (10/15) noted Celso Subramanian MD October 18, 2018 11:43
--- NOTE | 2018-10-18 11:45 | NUR ---
NURSE NOTES: Patient transferred to Telemetry as ordered in stable condition, to 207-1 via bed. Patient alert, oriented x4, calm, aware of updated orders, verbalized understanding. No SOB on RA or NV. Patient reports right thigh discomfort, 5/10. Denies chest pain. All belongings sent with patient and reviewed with receiving nurse. Patient oriented to new room, call light in reach, bed in lowest position. Report given to Adrianne ORTA.
--- NOTE | 2018-10-18 11:50 | NUR ---
NURSE NOTES: Received patient via gurney from Med-Surg, report given by YOU Varela. Pt is resting in bed, sleeping. Breathing unlabored in room air. IV patent. No signs and symptoms of acute distress noted at this time. Bed in lowest position, with two side rails up. Bed side table and call light within reach. Will continue plan of care.
--- NOTE | 2018-10-18 12:45 | Cardiac Electrophysiology PN ---
Assessment/Plan Assessment/Plan 1. Uncontrolled hypertension. Despite hydralazine 100 mgtid, lisinopril 20 mg b.i.d. as well as amlodipine 10 mg daily. Continue on p.r.n. clonidine as well. echo EF 65% 2. INFERIOR ISCHEMIA BY ECG. NO mi. SCHEDULE FOR STRESS TEST TODAY 3. Right lower quadrant pain, etiology is not clear. Follow up by Dr. Subramanian. The patient is currently on Flomax. VIPIN RN Subjective Subjective No CP or SOB. On tele. Objective Last 24 Hour Vital Signs Date Time Temp Pulse Resp B/P (MAP) Pulse Ox O2 Delivery O2 Flow Rate FiO2 10/18/18 09:31 172/90 10/18/18 09:30 63 172/90 10/18/18 09:00 Room Air 10/18/18 08:00 98.1 63 17 172/90 (117) 99 10/18/18 05:04 163/84 10/18/18 05:00 98.1 55 20 163/84 (110) 96 10/18/18 00:00 98.1 56 20 159/87 (111) 98 10/17/18 22:16 150/78 10/17/18 22:15 150/78 (102) 10/17/18 21:00 Room Air 10/17/18 20:56 173/86 10/17/18 20:00 97.9 71 173/86 (115) 10/17/18 18:45 160/97 10/17/18 18:45 71 160/97 (118) 10/17/18 16:00 Room Air 10/17/18 16:00 97.5 64 18 158/89 (112) 98 10/17/18 14:00 Room Air 10/17/18 13:15 165/91 10/17/18 13:11 165/91 Intake and Output 10/17/18 10/18/18 19:00 07:00 Intake Total 2029 ml 500 ml Balance 2029 ml 500 ml Intake Oral 2029 ml 500 ml # Voids 5 3 # Bowel Movements 6 Laboratory Tests Test 10/18/18 05:52 10/18/18 09:32 White Blood Count 4.6 K/UL (4.8-10.8) L Red Blood Count 4.21 M/UL (4.70-6.10) L Hemoglobin 13.8 G/DL (14.2-18.0) L Hematocrit 40.1 % (42.0-52.0) L Mean Corpuscular Volume 95 FL (80-99) Mean Corpuscular Hemoglobin 32.8 PG (27.0-31.0) H Mean Corpuscular Hemoglobin Concent 34.5 G/DL (32.0-36.0) Red Cell Distribution Width 10.8 % (11.6-14.8) L Platelet Count 189 K/UL (150-450) Mean Platelet Volume 8.2 FL (6.5-10.1) Neutrophils (%) (Auto) 58.5 % (45.0-75.0) Lymphocytes (%) (Auto) 29.5 % (20.0-45.0) Monocytes (%) (Auto) 8.8 % (1.0-10.0) Eosinophils (%) (Auto) 2.3 % (0.0-3.0) Basophils (%) (Auto) 0.9 % (0.0-2.0) Sodium Level 141 MMOL/L (136-145) Potassium Level 3.6 MMOL/L (3.5-5.1) Chloride Level 105 MMOL/L (98-107) Carbon Dioxide Level 26 MMOL/L (21-32) Anion Gap 10 mmol/L (5-15) Blood Urea Nitrogen 23 mg/dL (7-18) H Creatinine 1.3 MG/DL (0.55-1.30) Estimat Glomerular Filtration Rate > 60 mL/min (>60) Glucose Level 125 MG/DL (74-106) H Calcium Level 9.2 MG/DL (8.5-10.1) Troponin I 0.017 ng/mL (0.000-0.056) 0.012 ng/mL (0.000-0.056) Objective HEAD AND NECK: No JVD or carotid bruits. LUNGS: Clear. CARDIOVASCULAR: Regular S1 and S2 with no gallop or murmur. ABDOMEN: Soft. EXTREMITIES: No pitting edema. Vasyl Rolle MD October 18, 2018 12:45
--- NOTE | 2018-10-18 12:45 | NUR ---
CASE MANAGEMENT:REVIEW 10/18/18 SI: HYPERTENSION. UTI. 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
[2018-10-18] MEDS ORDERED: Lexiscan 0.4mg/5ml syringe IV PRN ×2 (13:00→13:29)
--- NOTE | 2018-10-18 13:36 | NUR ---
*-* INSURANCE *-* UPDATED CLINICALS AND REVIEWS HAVE BEEN FAXED TO: [facility]: [place] P- [phone] - [phone]....REVIEW/CLINICAL
[2018-10-18] MEDS: Lisinopril 20mg tab ORAL SCH (17:50)
[2018-10-18] MEDS ORDERED: Lisinopril 20mg tab ORAL SCH (18:00)
--- NOTE | 2018-10-18 19:55 | NUR ---
HAND-OFF: Report given to YOU Caceres.
--- NOTE | 2018-10-18 20:00 | NUR ---
NURSE NOTES: Received report from YOU Silver. Patient sitting in bed awake showing no signs of acute distress. Respiration even and non labored. No Sob noted. IV patent and intact. Bed in lowest position. Bed alarm on, and wheels locked. Call light within reach. All needs attended and met. Will continue plan of care.
--- NOTE | 2018-10-18 20:30 | Progress Note ---
DATE: 10/18/2018 NOTE: "POOR AUDIO QUALITY" SUBJECTIVE: This is an elderly male, sitting in the bed, comfortable. Blood pressure is still high, 175/90. The patient's troponin is slightly positive. Cardiology recommended him to transfer to telemetry bed. The patient has no chest pain. OBJECTIVE: CHEST: Bilaterally clear. CARDIOVASCULAR: Regular rhythm. ABDOMEN: Soft. ASSESSMENT: 1. Uncontrolled high blood pressure. 2. Chest pain. 3. Positive troponin. 4. Renal insufficiency. 5. BPH. PLAN: We will currently continue current treatment and continue hydralazine. Continue Norvasc, clonidine p.r.n., and follow trends and recommendation for if the patient needs a stress test. Ruy Campos M.D. DR: LISA JOB#: [id number] CC:
[2018-10-18] MEDS: Tamsulosin 0.4mg cap ORAL SCH (21:18)
[2018-10-19] VITALS: BP 161/82
[2018-10-19 04:00] VITALS: BP 173/88
[2018-10-19] MEDS: HydrALAZINE 50mg tab ORAL SCH ×3 (05:19→21:08)
--- NOTE | 2018-10-19 07:35 | NUR ---
HAND-OFF: Report given to YOU Olivares.
--- NOTE | 2018-10-19 07:37 | NUR ---
NURSE NOTES: Received report from Namrata/RN, Patient is awake, eating breakfast at bedside. No acute distress noted. Bed in low position, Call light within reach. Will continue plan of care.
[2018-10-19 08:00] VITALS: BP 141/80
[2018-10-19] MEDS ORDERED: Gadavist 7.5mMol/7.5ml vial IV PRN (08:00)
[2018-10-19] MEDS: Milk of Magnesia 30ml Ud ORAL SCH ×2 (08:55→18:37)
[2018-10-19] MEDS: Lisinopril 20mg tab ORAL SCH ×2 (08:57→18:38)
--- NOTE | 2018-10-19 09:40 | Urology Progress Note ---
Assessment/Plan Assessment/Plan: RLQ pain, etiology? urinary frequency renal cyst proteinuria testicular atrophy horseshoe kidney, mass posterior to isthmus monitor clinically consider gen surg eval flomax added renal fxn stable Subjective Allergies: Coded Allergies: No Known Allergies (Unverified , 10/12/18) Subjective no new changes Objective Last 24 Hour Vital Signs Date Time Temp Pulse Resp B/P (MAP) Pulse Ox O2 Delivery O2 Flow Rate FiO2 10/19/18 08:57 141/80 10/19/18 08:55 89 141/80 10/19/18 08:00 98.2 89 20 141/80 (100) 98 10/19/18 06:38 172/77 10/19/18 05:19 173/88 10/19/18 04:00 97.5 66 18 173/88 (116) 99 10/19/18 04:00 59 10/19/18 00:00 98.8 88 18 161/82 (108) 98 10/19/18 00:00 70 10/18/18 21:19 158/104 10/18/18 21:00 Room Air 10/18/18 20:00 99.7 73 18 158/104 (122) 98 10/18/18 20:00 65 10/18/18 17:50 156/88 10/18/18 17:20 156/88 (110) 10/18/18 16:15 178/92 10/18/18 16:00 83 10/18/18 16:00 97.9 98 20 178/92 (120) 97 10/18/18 15:51 61 10/18/18 15:00 159/98 (118) 10/18/18 14:03 178/104 10/18/18 12:01 96.7 81 20 178/104 (128) 96 10/18/18 12:00 76 Intake and Output 10/18/18 10/19/18 19:00 07:00 Intake Total 590 ml Balance 590 ml Intake Oral 590 ml # Voids 3 3 Current Medications Medications (Trade) Dose Ordered Sig/Keith Route PRN Reason Start Time Stop Time Status Last Admin Dose Admin Acetaminophen (Tylenol) 650 mg Q6H PRN ORAL Mild Pain/Temp > 100.5 10/18/18 13:27 11/17/18 13:26 10/19/18 06:39 Amlodipine Besylate (Norvasc) 10 mg DAILY ORAL 10/19/18 09:00 11/12/18 08:59 10/19/18 08:55 Clonidine HCl (Catapres Tab) 0.1 mg Q2H PRN ORAL SBP>160 or DBP>90 10/18/18 13:28 11/17/18 13:27 10/19/18 06:38 Gadobutrol (Gadavist) 7.5 mmol NOW PRN IV Radiology Procedure 10/19/18 08:00 11/18/18 07:59 Hydralazine HCl (Apresoline) 100 mg EVERY 8 HOURS ORAL 10/18/18 14:00 11/14/18 12:59 10/19/18 05:19 Ibuprofen (Motrin) 800 mg Q4H PRN ORAL for pain 10/18/18 13:28 11/17/18 13:27 10/19/18 08:56 Lisinopril (Prinivil) 20 mg BID ORAL 10/18/18 18:00 11/12/18 17:59 10/19/18 08:57 Magnesium Hydroxide (Mom) 30 ml BID ORAL 10/18/18 18:00 11/15/18 12:29 10/19/18 08:55 Regadenoson (Lexiscan) 0.4 mg ONCE PRN IV CARDIOLOGY 10/18/18 13:29 10/21/18 13:28 Tamsulosin HCl (Flomax) 0.4 mg BEDTIME ORAL 10/18/18 21:00 11/13/18 20:59 10/18/18 21:18 Height (Feet): 5 Height (Inches): 9.00 Weight (Pounds): 216 Objective exam stable MRI A/P (10/15) noted Celso Subramanian MD October 19, 2018 09:40
[2018-10-19 12:00] VITALS: BP 130/71
--- NOTE | 2018-10-19 15:10 | Cardiac Electrophysiology PN ---
Assessment/Plan Assessment/Plan 1. Uncontrolled hypertension. Much better on hydralazine 100 mg tid, lisinopril 20 mg b.i.d. as well as amlodipine 10 mg daily. Continue p.r.n. clonidine as well. EF 65% 2. INFERIOR ISCHEMIA BY ECG. NO mi. SCHEDULE FOR STRESS TEST Sunday 3. Right lower quadrant pain, etiology is not clear. Follow up by Dr. Subramanian. The patient is currently on Flomax. VIPIN RN Subjective Subjective No CP or SOB. Had Right groin pain Objective Last 24 Hour Vital Signs Date Time Temp Pulse Resp B/P (MAP) Pulse Ox O2 Delivery O2 Flow Rate FiO2 10/19/18 14:02 130/71 10/19/18 12:00 97.6 62 20 130/71 (90) 97 10/19/18 12:00 60 10/19/18 09:00 Room Air 10/19/18 08:57 141/80 10/19/18 08:55 89 141/80 10/19/18 08:00 85 10/19/18 08:00 98.2 89 20 141/80 (100) 98 10/19/18 06:38 172/77 10/19/18 05:19 173/88 10/19/18 04:00 97.5 66 18 173/88 (116) 99 10/19/18 04:00 59 10/19/18 00:00 98.8 88 18 161/82 (108) 98 10/19/18 00:00 70 10/18/18 21:19 158/104 10/18/18 21:00 Room Air 10/18/18 20:00 99.7 73 18 158/104 (122) 98 10/18/18 20:00 65 10/18/18 17:50 156/88 10/18/18 17:20 156/88 (110) 10/18/18 16:15 178/92 10/18/18 16:00 83 10/18/18 16:00 97.9 98 20 178/92 (120) 97 10/18/18 15:51 61 Intake and Output 10/18/18 10/19/18 19:00 07:00 Intake Total 590 ml Balance 590 ml Intake Oral 590 ml # Voids 3 3 Objective HEAD AND NECK: No JVD or carotid bruits. LUNGS: Clear. CARDIOVASCULAR: Regular S1 and S2 with no gallop or murmur. ABDOMEN: Soft. EXTREMITIES: No pitting edema. Vasyl Rolle MD October 19, 2018 15:10
[2018-10-19 16:00] VITALS: BP 168/94
--- NOTE | 2018-10-19 19:35 | NUR ---
NURSE NOTES: Report received from Elise RN, Pt is in stable condition and lying comfortably in bed. Bed in lowest position, bed brakes engaged, side rails up x3 with call light within reach. Will continue to monitor.
--- NOTE | 2018-10-19 19:35 | NUR ---
HAND-OFF: Report given to Aliya/RN, Patient alert and oriented, No acute distress. Endorsed plan of care.
[2018-10-19 20:00] VITALS: BP 163/108
[2018-10-19] MEDS: Tamsulosin 0.4mg cap ORAL SCH (20:11)
[2018-10-20] VITALS: BP 184/87
--- NOTE | 2018-10-20 02:00 | Progress Note ---
DATE: 10/19/2018 SUBJECTIVE: This is a 68-year-old male who was admitted for uncontrolled high blood pressure and abdominal pain. He also had some chest pain and positive troponin. The patient had troponin and scheduled for stress test. The patient's blood pressure is always high, although we have been managing and adjusting his blood pressure medication. The patient is also complaining of right hip pain. He has no fever or chills. He is moving. OBJECTIVE: VITAL SIGNS: His current blood pressure is 190/70 and pulse 60s. No fever. CHEST: Bilaterally clear. CARDIOVASCULAR: Regular rate and rhythm. ABDOMEN: Soft. EXTREMITIES: CCE. NEUROLOGIC: The patient has no focal deficit. GENITOURINARY: Deferred. LABORATORY DATA: BUN 23, creatinine 1.3, and glucose 125. Troponin 0.17 to 0.12. ASSESSMENT: 1. Uncontrolled high blood pressure. 2. Acute coronary syndrome. 3. Right hip pain. 4. BPH. PLAN: We will currently continue Norvasc. Continue Flomax and lisinopril 20 mg p.o. b.i.d. Continue milk of magnesia. We will change his hydralazine to 100 mg p.o. t.i.d. Continue ibuprofen and Tylenol for pain. Ruy Campos M.D. DR: STEFF JOB#: [id number] CC:
[2018-10-20 04:00] VITALS: BP 156/66
[2018-10-20] MEDS: HydrALAZINE 50mg tab ORAL SCH ×3 (05:36→21:07)
--- NOTE | 2018-10-20 07:25 | NUR ---
NURSE NOTES: Received report from YOU Pisano. Patient in bed resting, no active s/s cardiac, respiratory distress noticed at this time, patient on room air, SB with HR 53. IV on right AC 20G, asymptomatic, patent, intact, patient AOx4, denies pain at this time. Endorsed patient schedule for stress test tomorrow 10/21/18. Bed in lowest position, side rails upx2, call light within reach. Will continue to monitor.
--- NOTE | 2018-10-20 07:42 | NUR ---
HAND-OFF: Report given to YOU Vega.
[2018-10-20 08:00] VITALS: BP 153/78
[2018-10-20] MEDS: Milk of Magnesia 30ml Ud ORAL SCH ×2 (08:24→17:34)
[2018-10-20] MEDS: Lisinopril 20mg tab ORAL SCH ×2 (08:25→17:34)
--- NOTE | 2018-10-20 09:54 | Urology Progress Note ---
Assessment/Plan Assessment/Plan: RLQ pain, etiology? urinary frequency renal cyst proteinuria testicular atrophy horseshoe kidney, mass posterior to isthmus monitor clinically consider gen surg eval flomax added renal fxn stable Subjective Allergies: Coded Allergies: No Known Allergies (Unverified , 10/12/18) Subjective no new changes Objective Last 24 Hour Vital Signs Date Time Temp Pulse Resp B/P (MAP) Pulse Ox O2 Delivery O2 Flow Rate FiO2 10/20/18 09:00 Room Air 10/20/18 08:25 153/78 10/20/18 08:25 88 153/78 10/20/18 08:00 97.8 88 18 153/78 (103) 97 10/20/18 05:36 156/66 10/20/18 04:00 53 10/20/18 04:00 98.4 52 18 156/66 (96) 98 10/20/18 03:27 97.7 10/20/18 00:16 184/87 10/20/18 00:02 97.7 10/20/18 00:00 97.3 66 18 184/87 (119) 98 10/20/18 00:00 60 10/19/18 21:08 163/108 10/19/18 21:00 Room Air 10/19/18 20:00 71 10/19/18 20:00 97.7 84 18 163/108 (126) 98 10/19/18 18:38 168/94 10/19/18 16:10 168/94 10/19/18 16:00 107 10/19/18 16:00 97.7 109 20 168/94 (118) 99 10/19/18 14:02 130/71 10/19/18 12:00 97.6 62 20 130/71 (90) 97 10/19/18 12:00 60 Intake and Output 10/19/18 10/20/18 19:00 07:00 Intake Total 1200 ml Balance 1200 ml Intake Oral 1200 ml # Voids 4 2 # Bowel Movements 1 Current Medications Medications (Trade) Dose Ordered Sig/Keith Route PRN Reason Start Time Stop Time Status Last Admin Dose Admin Acetaminophen (Tylenol) 650 mg Q6H PRN ORAL Mild Pain/Temp > 100.5 10/18/18 13:27 11/17/18 13:26 10/19/18 23:32 Amlodipine Besylate (Norvasc) 10 mg DAILY ORAL 10/19/18 09:00 11/12/18 08:59 10/20/18 08:25 Clonidine HCl (Catapres Tab) 0.1 mg Q2H PRN ORAL SBP>160 or DBP>90 10/18/18 13:28 11/17/18 13:27 10/20/18 00:16 Gadobutrol (Gadavist) 7.5 mmol NOW PRN IV Radiology Procedure 10/19/18 08:00 11/18/18 07:59 Hydralazine HCl (Apresoline) 100 mg EVERY 8 HOURS ORAL 10/18/18 14:00 11/14/18 12:59 10/20/18 05:36 Ibuprofen (Motrin) 800 mg Q4H PRN ORAL for pain 10/18/18 13:28 11/17/18 13:27 10/20/18 08:25 Lisinopril (Prinivil) 20 mg BID ORAL 10/18/18 18:00 11/12/18 17:59 10/20/18 08:25 Magnesium Hydroxide (Mom) 30 ml BID ORAL 10/18/18 18:00 11/15/18 12:29 10/20/18 08:24 Regadenoson (Lexiscan) 0.4 mg ONCE PRN IV CARDIOLOGY 10/18/18 13:29 10/21/18 13:28 Tamsulosin HCl (Flomax) 0.4 mg BEDTIME ORAL 10/18/18 21:00 11/13/18 20:59 10/19/18 20:11 Height (Feet): 5 Height (Inches): 9.00 Weight (Pounds): 216 Objective exam stable MRI A/P (10/15) noted Celso Subramanian MD October 20, 2018 09:54
[2018-10-20 12:00] VITALS: BP 167/99
--- NOTE | 2018-10-20 13:03 | NUR ---
RD ASSESSMENT & RECOMMENDATIONS SEE CARE ACTIVITY FOR COMPLETE ASSESSMENT DAILY ESTIMATED NEEDS: Needs based on cardiac 79kg adj 20-25 kcals/kg total kcals 1-1.2 g protein/kg 79-95 g total protein 20-25ml/kg mL/kg total fluid mLs NUTRITION DIAGNOSIS: Decreased sodium and fat needs r/t cardiac history and BMI as evidenced by h/o CVA, w/ HTN, BMI obese per guidelines. CURRENT DIET: low na PO DIET RECOMMENDATIONS: Cardiac Diet ADDITIONAL RECOMMENDATIONS: - Check A1C; need for carb control diet - Obtain a standing weight for eval - Niss as needed for glycemic control - check lipid panel
[2018-10-20 16:00] VITALS: BP 152/88
--- NOTE | 2018-10-20 16:58 | Cardiac Electrophysiology PN ---
Assessment/Plan Assessment/Plan 1. Uncontrolled hypertension. Still high despite hydralazine 100 tid, lisinopril 20 bid. as well as amlodipine 10 mg daily. Continue p.r.n. clonidine as well. EF 65%. Add Clonidine 0.1 bid 2. INFERIOR ISCHEMIA BY ECG. NO mi. Awaiting FOR STRESS TEST Sunday 3. Right lower quadrant pain, etiology is not clear. Follow up by Dr. Subramanian. The patient is currently on Flomax. VIPIN RN Subjective Subjective No CP or SOB. In SR on tele. Objective Last 24 Hour Vital Signs Date Time Temp Pulse Resp B/P (MAP) Pulse Ox O2 Delivery O2 Flow Rate FiO2 10/20/18 14:04 167/99 10/20/18 12:00 82 10/20/18 12:00 97.7 98 20 167/99 (121) 98 10/20/18 09:00 Room Air 10/20/18 08:25 153/78 10/20/18 08:25 88 153/78 10/20/18 08:00 97.8 88 18 153/78 (103) 97 10/20/18 08:00 75 10/20/18 05:36 156/66 10/20/18 04:00 53 10/20/18 04:00 98.4 52 18 156/66 (96) 98 10/20/18 03:27 97.7 10/20/18 00:16 184/87 10/20/18 00:02 97.7 10/20/18 00:00 97.3 66 18 184/87 (119) 98 10/20/18 00:00 60 10/19/18 21:08 163/108 10/19/18 21:00 Room Air 10/19/18 20:00 71 10/19/18 20:00 97.7 84 18 163/108 (126) 98 10/19/18 18:38 168/94 Intake and Output 10/19/18 10/20/18 19:00 07:00 Intake Total 1200 ml Balance 1200 ml Intake Oral 1200 ml # Voids 4 2 # Bowel Movements 1 Objective HEAD AND NECK: No JVD or carotid bruits. LUNGS: Clear. CARDIOVASCULAR: Regular S1 and S2 with no gallop or murmur. ABDOMEN: Soft. EXTREMITIES: No pitting edema. Vasyl Rolle MD October 20, 2018 16:58
--- NOTE | 2018-10-20 19:34 | NUR ---
NURSE NOTES: Report received from YOU Vega. Pt in stable condition. Bed in lowest position, bed brakes engaged, side rails up, call light within reach.
--- NOTE | 2018-10-20 19:34 | NUR ---
HAND-OFF: Report given to YOU Pisano.
[2018-10-20 20:00] VITALS: BP 136/84
[2018-10-20] MEDS: Tamsulosin 0.4mg cap ORAL SCH (21:08)
[2018-10-21] VITALS: BP 135/82
[2018-10-21 04:00] VITALS: BP 153/85
--- NOTE | 2018-10-21 04:45 | Progress Note ---
DATE: 10/20/2018 SUBJECTIVE: A 68 years old male came with uncontrolled high blood pressure, acute coronary syndrome, also abdominal pain and BPH. still blood pressure is high stress test. OBJECTIVE: VITAL SIGNS: Blood pressure is and pulse 74. CHEST: Bilaterally clear. CARDIOVASCULAR: Regular rhythm. ABDOMEN: Soft. EXTREMITIES: CCE. ASSESSMENT: 1. Acute coronary syndrome. 2. Accelerated hypertension. 3. Hyperlipidemia. 4. Benign prostatic hypertrophy. PLAN: They will currently continue multiple medications for hypertension, hydralazine, metoprolol, Norvasc, clonidine, 2 grams sodium diet. Cardiology on case. Ruy Campos M.D. DR: Vinny JOB#: [id number] CC:
[2018-10-21] MEDS: HydrALAZINE 50mg tab ORAL SCH ×2 (05:01→14:07)
--- NOTE | 2018-10-21 07:26 | NUR ---
HAND-OFF: Report given to YOU Vega.
--- NOTE | 2018-10-21 07:54 | NUR ---
NURSE NOTES: Received report from YOU Pisano. Patient in bed resting, no active s/s cardiac, respiratory distress noticed at this time. Patient on room air, AOx4 , SR with HR 76. IV on right AC 20G, asymptomatic, patent, intact. Endorsed patient schedule for stress test today 10/21/18. Bed in lowest position, side rails upx2, call light within reach. Will continue to monitor.
[2018-10-21 08:00] VITALS: BP 135/77
[2018-10-21] MEDS: Lisinopril 20mg tab ORAL SCH (08:49)
[2018-10-21] MEDS: Milk of Magnesia 30ml Ud ORAL SCH (08:49)
--- NOTE | 2018-10-21 10:02 | NUR ---
CASE MANAGEMENT:REVIEW 10/19/18 SI: HYPERTENSION. UTI. 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 UTI. 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 UTI. 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
--- NOTE | 2018-10-21 10:05 | NUR ---
*-* INSURANCE *-* UPDATED CLINICALS AND REVIEWS HAVE BEEN FAXED TO: [facility] NCM: [place] P- [phone] F- [phone]....REVIEW/CLINICAL
--- NOTE | 2018-10-21 11:04 | Cardiac Electrophysiology PN ---
Assessment/Plan Assessment/Plan 1. Uncontrolled hypertension. Better on hydralazine 100 tid, lisinopril 20 bid , Norvasc 10 daily and Clonidine 0.1 bid Continue p.r.n. clonidine as well. EF 65%. 2. INFERIOR ISCHEMIA BY ECG. NO mi. Awaiting STRESS TEST today 3. Right lower quadrant pain, etiology is not clear. Follow up by Dr. Subramanian. The patient is currently on Flomax. VIPIN RN Subjective Subjective No CP or SOB. In SR 90s. NPO for stress test today. Objective Last 24 Hour Vital Signs Date Time Temp Pulse Resp B/P (MAP) Pulse Ox O2 Delivery O2 Flow Rate FiO2 10/21/18 09:00 Room Air 10/21/18 08:49 135/77 10/21/18 08:49 60 135/77 10/21/18 08:00 98.2 64 21 135/77 (96) 95 10/21/18 08:00 58 10/21/18 05:01 153/85 10/21/18 05:01 153/85 10/21/18 04:00 97.1 79 18 153/85 (107) 98 10/21/18 04:00 57 10/21/18 00:00 97.0 77 18 135/82 (99) 96 10/21/18 00:00 61 10/20/18 21:38 97.2 10/20/18 21:08 136/84 10/20/18 21:07 136/84 10/20/18 21:00 Room Air 10/20/18 20:00 62 10/20/18 20:00 97.6 78 17 136/84 (101) 97 10/20/18 17:34 152/88 10/20/18 16:00 97.2 84 18 152/88 (109) 98 10/20/18 16:00 61 10/20/18 14:04 167/99 10/20/18 12:00 82 10/20/18 12:00 97.7 98 20 167/99 (121) 98 Intake and Output 10/20/18 10/21/18 19:00 07:00 Intake Total 600 ml Balance 600 ml Intake Oral 600 ml # Voids 3 2 Objective HEAD AND NECK: No JVD LUNGS: Clear. CARDIOVASCULAR: Regular S1 and S2 with no gallop or murmur. ABDOMEN: Soft. EXTREMITIES: No pitting edema. Vasyl Rolle MD October 21, 2018 11:04
[2018-10-21 12:00] VITALS: BP 130/73
--- NOTE | 2018-10-21 12:42 | Urology Progress Note ---
Assessment/Plan Assessment/Plan: RLQ pain, etiology? urinary frequency renal cyst proteinuria testicular atrophy horseshoe kidney, mass posterior to isthmus monitor clinically consider gen surg eval flomax added renal fxn stable Subjective Allergies: Coded Allergies: No Known Allergies (Unverified , 10/12/18) Subjective no new changes Objective Last 24 Hour Vital Signs Date Time Temp Pulse Resp B/P (MAP) Pulse Ox O2 Delivery O2 Flow Rate FiO2 10/21/18 09:00 Room Air 10/21/18 08:49 135/77 10/21/18 08:49 60 135/77 10/21/18 08:00 98.2 64 21 135/77 (96) 95 10/21/18 08:00 58 10/21/18 05:01 153/85 10/21/18 05:01 153/85 10/21/18 04:00 97.1 79 18 153/85 (107) 98 10/21/18 04:00 57 10/21/18 00:00 97.0 77 18 135/82 (99) 96 10/21/18 00:00 61 10/20/18 21:38 97.2 10/20/18 21:08 136/84 10/20/18 21:07 136/84 10/20/18 21:00 Room Air 10/20/18 20:00 62 10/20/18 20:00 97.6 78 17 136/84 (101) 97 10/20/18 17:34 152/88 10/20/18 16:00 97.2 84 18 152/88 (109) 98 10/20/18 16:00 61 10/20/18 14:04 167/99 Intake and Output 10/20/18 10/21/18 19:00 07:00 Intake Total 600 ml Balance 600 ml Intake Oral 600 ml # Voids 3 2 Current Medications Medications (Trade) Dose Ordered Sig/Keith Route PRN Reason Start Time Stop Time Status Last Admin Dose Admin Acetaminophen (Tylenol) 650 mg Q6H PRN ORAL Mild Pain/Temp > 100.5 10/18/18 13:27 11/17/18 13:26 10/19/18 23:32 Amlodipine Besylate (Norvasc) 10 mg DAILY ORAL 10/19/18 09:00 11/12/18 08:59 10/21/18 08:49 Clonidine HCl (Catapres Tab) 0.1 mg EVERY 8 HOURS ORAL 10/20/18 22:00 11/19/18 21:59 10/21/18 05:01 Clonidine HCl (Catapres Tab) 0.1 mg Q2H PRN ORAL SBP>160 or DBP>90 10/18/18 13:28 11/17/18 13:27 10/20/18 00:16 Gadobutrol (Gadavist) 7.5 mmol NOW PRN IV Radiology Procedure 10/19/18 08:00 11/18/18 07:59 Hydralazine HCl (Apresoline) 100 mg EVERY 8 HOURS ORAL 10/18/18 14:00 11/14/18 12:59 10/21/18 05:01 Ibuprofen (Motrin) 800 mg Q4H PRN ORAL for pain 10/18/18 13:28 11/17/18 13:27 10/20/18 21:08 Lisinopril (Prinivil) 20 mg BID ORAL 10/18/18 18:00 11/12/18 17:59 10/21/18 08:49 Magnesium Hydroxide (Mom) 30 ml BID ORAL 10/18/18 18:00 11/15/18 12:29 10/20/18 17:34 Regadenoson (Lexiscan) 0.4 mg ONCE PRN IV CARDIOLOGY 10/18/18 13:29 10/21/18 13:28 Tamsulosin HCl (Flomax) 0.4 mg BEDTIME ORAL 10/18/18 21:00 11/13/18 20:59 10/20/18 21:08 Height (Feet): 5 Height (Inches): 9.00 Weight (Pounds): 216 Objective exam stable MRI A/P (10/15) noted Celso Subramanian MD October 21, 2018 12:42
--- NOTE | 2018-10-21 13:52 | NUR ---
Myocardial Perfusion Scan complete.
--- NOTE | 2018-10-21 13:57 | Diagnostic Imaging Report ---
Indication: chest pain Technique: The study was conducted under the supervision of a sketcher. lexiscan (regadenoson) infusion over 10 seconds followed by intravenous administration of 31.2 mCi of technetium 99m Myoview was performed. Three plane SPECT imaging of the heart was then performed. A resting study was performed as part of the one-day protocol with 10.6 mCi of technetium 99m myoview injected intravenously at that time. Three plane SPECT imaging of the heart was obtained. Comparison: None Clinical data: 1. Clinical response: Non ischemic 2. Electrocardiographic response: Nondiagnostic Findings: The myocardial perfusion scan demonstrates no definite fixed or reversible perfusion defects. Left ventricular ejection fraction is estimated at 63%. IMPRESSION: Negative myocardial perfusion scan
--- NOTE | 2018-10-21 14:16 | NUR ---
NURSE NOTES: Per Dr. Campos discharge patient home, continue medication as prescribed on paper. Order noted, entered, carried out. Will continue to monitor.
--- NOTE | 2018-10-21 14:44 | NUR ---
NURSE NOTES: Patient's home medication picked up, new prescription faxed to [facility] pharmacy. Called [facility] [phone], clarified they got fax and will sent medication soon. Will continue to follow up.
[2018-10-21] MEDS ORDERED: HYDRALAZINE HCL50 MG ORAL (14:47)
[2018-10-21] MEDS ORDERED: FLOMAX0.4 MG ORAL (14:47)
[2018-10-21] MEDS ORDERED: LISINOPRIL20 MG ORAL (14:48)
[2018-10-21] MEDS ORDERED: NORVASC10 MG ORAL (14:48)
[2018-10-21] MEDS ORDERED: CATAPRES0.1 MG ORAL (14:49)
[2018-10-21 16:00] VITALS: BP 124/94
--- NOTE | 2018-10-21 16:39 | NUR ---
NURSE NOTES: Patient discharged to home per Dr. Campos. Patient's ID removed and placed in shredder. IV removed and ekg monitor returned to color television console monitor. Patient taking cab with voucher per patient's preference in a stable condition. Patient discharge with all belonging, friend/family member made aware.
--- NOTE | 2018-10-21 16:45 | History and Physical Report ---
DATE OF ADMISSION: 10/12/2018 REASON FOR ADMISSION: Uncontrolled high blood pressure, neck pain, back pain. The patient is currently sitting in the bed. He has no fever or chills. PAST MEDICAL HISTORY: Significant for hypertension, chronic back pain, abdominal pain. ALLERGIES: NKA. FAMILY HISTORY: Noncontributory. SOCIAL HISTORY: The patient lives at home. REVIEW OF SYSTEMS: The patient is sitting, weak, tired. PHYSICAL EXAMINATION: VITAL SIGNS: Blood pressure is 130/70, pulse 74, respirations 18. SKIN: Good skin turgor. HEENT: NAD. CHEST: Bilaterally clear. CARDIOVASCULAR: Regular rate and rhythm. No murmur. ABDOMEN: Soft. Positive bowel sounds. Nontender. EXTREMITIES: CCE. NEUROLOGIC: The patient has generalized weakness. GENITOURINARY: Deferred. ASSESSMENT: 1. Uncontrolled high blood pressure. 2. Acute coronary syndrome. 3. BPH. 4. Degenerative arthritis. PLAN: We will admit on medical floor, tele bed, rule out of the [place], going for a stress test today. Continue current treatment. The patient has been on multiple antihypertensive medications, lisinopril, hydralazine, hydrochlorothiazide, and clonidine p.r.n. Awaiting for a stress test. If it is negative, the patient can go home and follow up as outpatient. Ruy Campos M.D. DR: LISA JOB#: [id number] CC: VERN[place]
== END 2018-10-21 16:41 | disposition home or self-care (01) | DRG 305 ==
LOC: EMR 15:39 → EDBEDREQ 21:18 → 2W 21:20 → OBSVTOIN 21:20 → EDBEDREQ 21:42 → 2E 10-13 06:23 → 3E 10-13 22:05 → 2E 10-18 11:45
DX: I16.0 Hypertensive urgency (principal); Q63.1 Lobulated, fused and horseshoe kidney; N28.1 Cyst of kidney, acquired; N40.0 Benign prostatic hyperplasia without lower urinary tract symptoms; E66.9 Obesity, unspecified; E86.0 Dehydration; R10.31 Right lower quadrant pain; R35.0 Frequency of micturition
CPT/HCPCS: 36415; 72197; 74177; 74183; 78452; 80048; 80053; 80307; 81003; 83690; 84484; 85025; 86850; 86900; 86901; 93005; 93017; 93306; 96374; 96375; 99285; A9585; J2785